=== PATIENT | male | born 1955 | race Caucasian/White ===

== ENCOUNTER → 2020-06-06 09:15 | Outpatient (CLI) | payer MEDICARE, SELFPAY | PROVIDERS: PCP Family Medicine; Referring Provider Family Medicine; Visit Provider Family Medicine | DX: Z03.818 Encounter for observation for suspected exposure to other biological agents ruled out (principal) | CPT/HCPCS: 87635; C9803; U0003 ==

== ENCOUNTER 2022-05-26 09:48 | Emergency (ER) | payer MEDICARE, SELFPAY ==
[2022-05-26 09:48] VITALS: BP 131/70; PULSE 87; RESP 18; TEMP 36.1; O2SAT 95; BMI 42.7
--- NOTE | 2022-05-26 09:59 | EX.ED.DYSGE1 ---
HPI History of Present Illness Chief Complaint: Flank Pain Narrative Narrative: Patient started having right-sided flank pain radiating to his right groin last night and got worse today. Although at this time it has somewhat improved after taking some Motrin this morning. No fevers or chills, he had some radiation to his testicle but that is gone. He has no urinary symptoms. He has no nausea or vomiting he has no diarrhea or constipation. He does have a history of kidney stones but he also has an appendix. [facility] Medical History (Updated 05/26/22 @ 11:[address] Gonzales Cornell MD) Diabetes Encounter for screening for COVID-19 Hypertension Lab test negative for COVID-19 virus Home Medications NK 04/25/21 [History Last Taken Unknown] Allergy/AdvReac Type Severity Reaction Status Date / Time docusate [From Colace] Allergy Unknown unknown Verified 05/26/22 09:50 Surgical History (Updated 05/26/22 @ 10:24 by Missy Beckham) History of right hip replacement Social History Smoking Status: Former smoker ROS ROS ED ROS Narrative Past medical history: Reviewed Medications: Reviewed Social history: Noncontributory Review of systems: All systems negative except as indicated General: No fever Eyes: No visual changes ENT: No upper airway congestion, normal voice Neck: No neck pain Cardiovascular: No chest pain Respiratory: No shortness of breath or cough Gastrointestinal: Abdominal pain as in HPI Genitourinary: No dysuria. No hematuria Musculoskeletal: Denies myalgias no difficulty with ambulation Skin: No rash Neurological: No memory loss, confusion or any focal weakness Psych: No recent behavioral changes Hematologic: No easy bleeding or easy bruising EXAM Physical Exam Narrative Exam Narrative: Physical exam General: Well nourished, Well developed, No Acute Distress Head: Normocephalic, Atraumatic Eyes: Conjunctiva not pale ENT: Moist mucous membranes Neck: Supple, Nontender, No lymphadenopathy Cardiovascular: Regular rate, Regular rhythm Respiratory: No distress, CTA bilaterally Abdomen: Soft, right lower quadrant abdominal pain. No guarding or rebound. Pain does extend into the right CVA region Back: Nontender, Normal Inspection. Extremities: Nontender, No edema Skin: Normal color, No rash Neurological: Alert, Normal Strength, Normal Sensation Psychological: Normal affect Const Vital Signs: 05/26/22 09:48 Temperature 96.9 F L Temperature Source Temporal Pulse Rate 87 Respiratory Rate 18 Blood Pressure 131/70 H Blood Pressure Mean 90 Pulse Ox 95 Oxygen Delivery Method Room Air MDM MDM MDM Narrative Medical decision making narrative: Patient's work-up is unremarkable there is a 7 mm stone and the bladder which likely indicates a recently passed stone which is consistent with his clinical history. He is reassured I will discharge him in stable condition. Lab Data Labs: Laboratory Results - last 24 hr 05/26/22 05/26/22 05/26/22 10:05 10:20 10:20 WBC 10.7 RBC 4.52 L Hgb 14.1 Hct 41.6 MCV 92.0 MCH 31.2 MCHC 33.9 RDW Std Deviation 43.5 RDW Coeff of Rhonda 13.1 Plt Count 229 MPV 9.0 Immature Gran % (Auto) 0.400 Neut % (Auto) 85.4 H Lymph % (Auto) 7.2 L [place] % (Auto) 6.2 Eos % (Auto) 0.4 Baso % (Auto) 0.4 Absolute Neuts (auto) 9.1 H Absolute Lymphs (auto) 0.77 L Nucleated RBC % 0 Sodium 137 Potassium 4.2 Chloride 102 Carbon Dioxide 26.0 Anion Gap 9 BUN 34 H Creatinine 1.22 Estim Creat Clear Calc 63.61 Est GFR (MDRD) Af Amer 76 Est GFR (MDRD) Non-Af 63 BUN/Creatinine Ratio 27.9 H Glucose 188 H Calcium 10.3 H Total Bilirubin 0.90 AST 18 ALT 35 Alkaline Phosphatase 39 L Total Protein 7.0 Albumin 3.4 Globulin 3.6 Albumin/Globulin Ratio 0.9 Urine Color Yellow Urine Clarity Clear Urine pH 6.0 Ur Specific [place] 1.015 Urine Protein 15 H Urine Glucose (UA) Normal Urine Ketones Negative Urine Occult Blood Negative Urine Nitrite Negative Urine Bilirubin Negative Urine Urobilinogen Normal Ur Leukocyte Esterase 25 H Urine RBC 0 SEEN Urine WBC 0-5 SEEN Ur Squamous Epith Cells 0 SEEN Urine Bacteria 0 SEEN Urine Mucus 0 SEEN Radiography Diagnostic Testing: Clinical Impression(s) from Imaging Studies Abdomen/Pelvis CT 05/26/22 10:40 IMPRESSION: Fatty infiltration of the liver. Nonobstructive bilateral intrarenal calculi. 7 mm calculus seen at the base of the urinary bladder most likely representing a recently passed calculus. Prostatic enlargement with indentation of the bladder base. Electronically Signed: Maninder Lucero MD at 11:13 EDT , Discharge Plan Triage Chief Complaint: Flank Pain ED Provider: Gonzales Cornell Dx/Rx/DC Orders Clinical Impression: Kidney calculi, Acute flank pain Instructions: Kidney Stones Expectant Tx Prescriptions: No Action NK Primary Care Provider: Michael Randall Referrals: Michael Randall MD [Primary Care Provider] - 2 Days Disposition Disposition: Home, Self Care
[2022-05-26 10:15] LABS: Bacteria 0 SEEN /hpf (None Seen); Mucous, Urine 0 SEEN /hpf (<or=2+); Red Blood Cells-Urine 0 SEEN /hpf (0-5); Squamous Epithelial Cells - UA 0 SEEN /hpf (0-5)
[2022-05-26 10:21] LABS: Color, Urine Yellow (Yellow); Glucose, Dipstick Normal (Normal); Ketone-Dipstick Negative (Negative); Leukocyte Esterase-Dipstick 25 /ul (Negative); Nitrite-Dipstick Negative (Negative); Occult Blood-Urine Negative /ul (Negative); Protein-Dipstick 15 mg/dl (Negative); Specific Gravity, Urine 1.015 (1.002-1.030); Urine Bilirubin Dipstick Negative (Negative); Urine Clarity Clear (Clear); Urine Urobilinogen Normal (Normal)
[2022-05-26 10:26] LABS: White Blood Cells 0-5 SEEN /hpf (0-5)
[2022-05-26 10:26] LABS: Absolute Lymphocyte Count 0.77 X10^3/uL (0.83-4.51); Absolute Neutrophil Count 9.1 X10^3/uL (2.0-7.7); Basophil# 0.04 X10^3/uL; Basophil% 0.4 % (0-1); Eosinophil# 0.04 X10^3/uL; Eosinophils% 0.4 % (0-5); Hematocrit 41.6 % (40-54); Hemoglobin 14.1 g/dL (13.0-16.5); Lymphocyte # 0.77 X10^3/ul (0.83-4.51); Lymphocyte % 7.2 % (19-41); Mean Corp Hgb Conc 33.9 g/dL (32-36); Mean Corpuscular Hgb 31.2 pg (27.0-32.0); Monocyte# 0.66 X10^3/uL; Monocyte% 6.2 % (0-10); NRBC Flagged by Analyzer 0 % (0-5); Neutrophil # 9.14 X10^3/uL (2.7-7.7); Neutrophil % 85.4 % (47-70); Platelet Count 229 K/mm3 (150-450); RBC Distribution Width CV 13.1 % (11.6-14.6); RBC Distribution Width SD 43.5 fl (35.1-43.9); Red Blood Count 4.52 M/mm3 (4.6-6.2); White Blood Count 10.7 K/mm3 (4.4-11.0)
--- NOTE | 2022-05-26 10:40 | CT_ITS ---
STUDY: CT ABDOMEN AND PELVIS WITHOUT CONTRAST REASON FOR EXAM: Male, 67 years old. Flank pain RADIATION DOSAGE (If Supplied By Facility): CTDIvol = ( 23.79 ) mGy, DLP = ( 1313.65 ) mGycm TECHNIQUE: Transaxial images were obtained from the dome of the diaphragm to the symphysis pubis without oral contrast, and without intravenous contrast. Sagittal and coronal images were reconstructed. Individualized dose optimization techniques were used for this CT. COMPARISON: None. FINDINGS: Minimal degree of increased linear markings at the lung bases suggestive of linear atelectasis and/or scarring. Coronary artery calcification. There is decreased attenuation of the liver consistent with steatosis. Normal gallbladder and extrahepatic biliary system. Normal spleen. Normal pancreas. Normal bilateral adrenal glands. There is a 5.9 mm calculus in the posterior inferior pole calyx of the right kidney. 5 mm nonobstructive calculus in the lower pole calyx of the left kidney. There is a 1.1 cm cyst in the lateral aspect of the left kidney with rim-like calcification. Tiny calcifications are also seen along the lateral margin of the left kidney. There is a small hiatal hernia. Normal small intestine. Normal colon. The appendix is visualized and appears normal. There is scattered atherosclerotic calcification of the abdominal aorta and its major visceral branches, without a demonstrated aneurysm. Normal inferior vena cava. Normal retroperitoneum. Contracted urinary bladder. There is a 7.1 mm calculus at the base of the bladder most likely representing a recently passed ureteral calculus. The prostate is enlarged. It measures 7 cm x 6.8 cm. This causes indentation at the bladder base. There is evidence of prior lower anterior abdominal wall hernia repair with a mesh. There are diffuse degenerative changes of the visualized lumbar spine. Prior right hip replacement. CT/Abdomen/Pelvis without Cont IMPRESSION: Fatty infiltration of the liver. Nonobstructive bilateral intrarenal calculi. 7 mm calculus seen at the base of the urinary bladder most likely representing a recently passed calculus. Prostatic enlargement with indentation of the bladder base. Electronically Signed: Maninder Lucero MD at 11:13 EDT ,
[2022-05-26 10:48] LABS: ALB/GLOB Ratio 0.9 RATIO (0.9-2.4); AST(SGOT) 18 U/L (15-37); Alanine Aminotransfer ALT/SGPT 35 U/L (16-61); Albumin, Serum 3.4 g/dL (3.2-5.0); Alkaline Phosphatase 39 U/L (45-117); Anion Gap 9 (5-15); BUN 34 mg/dL (7-18); BUN/Creat Ratio 27.9 RATIO (10-20); Calcium,Total 10.3 mg/dL (8.5-10.1); Chloride 102 mmol/L (98-107); Creatinine, Serum 1.22 mg/dL (0.70-1.30); EST Glomerular Filtration Rate 63 mL/min (>60); Est Glom Filt Rate - Afr Amer 76 mL/min (>60); Estimated Creatinine Clearance 63.61 ml/min; Globulin 3.6 g/dL (2.2-4.2); Glucose 188 mg/dL (74-106); Potassium 4.2 mmol/L (3.5-5.1); Sodium Level 137 mmol/L (136-145)
[2022-05-26 11:46] VITALS: BP 113/58; PULSE 71; RESP 18; O2SAT 97
== END 2022-05-26 11:47 | disposition home or self-care (01) ==
PROVIDERS: Emergency Provider Emergency Medicine; PCP Family Medicine; Visit Provider Emergency Medicine
DX: N20.0 Calculus of kidney (principal); E11.9 Type 2 diabetes mellitus without complications; I10 Essential (primary) hypertension; Z87.891 Personal history of nicotine dependence
CPT/HCPCS: 74176; 80053; 81001; 85025; 99283

== ENCOUNTER 2022-05-30 09:45 | Emergency (ER) | payer MEDICARE, SELFPAY ==
[2022-05-30 09:46] VITALS: BP 163/79; PULSE 75; RESP 18; TEMP 37.3; O2SAT 96; BMI 39.4
--- NOTE | 2022-05-30 09:58 | CT_ITS ---
STUDY: CT ABDOMEN AND PELVIS WITHOUT CONTRAST REASON FOR EXAM: Male, 67 years old. RLQ Pain. Known calculus in the urinary bladder. RADIATION DOSAGE (If Supplied By Facility): CTDIvol = ( 30.967 ) mGy, DLP = ( 1679.10 ) mGycm TECHNIQUE: Transaxial images were obtained from the dome of the diaphragm to the symphysis pubis without oral contrast, and without intravenous contrast. Sagittal and coronal images were reconstructed. Individualized dose optimization techniques were used for this CT. COMPARISON: Comparison is made with prior study dated 05/26/2020. FINDINGS: Stable mild linear scarring at the lung bases. Coronary artery calcification. There is decreased attenuation of the liver consistent with steatosis. Normal gallbladder and extrahepatic biliary system. Normal spleen. Normal pancreas. Normal bilateral adrenal glands. Stable bilateral nonobstructive intrarenal calculi. Stable calcific nodules along the peripheral aspect of the left kidney. Normal visualized stomach. Normal small intestine. Normal colon. The appendix is visualized and appears normal. Normal abdominal aorta. Normal inferior vena cava. Normal retroperitoneum. Normal urinary bladder. Prostatic enlargement with indentation at the bladder base. 7.1 mm calculus at the base of the bladder. Prior lower anterior abdominal wall hernia repair with mesh. There are diffuse degenerative changes of the visualized lumbar spine. CT/Abdomen/Pelvis without Cont IMPRESSION: Stable examination Electronically Signed: Maninder Lucero MD at 11:06 EDT ,
--- NOTE | 2022-05-30 09:59 | EDS_ITS ---
HPI History of Present Illness Chief Complaint: Flank Pain Informant: patient Narrative Narrative: 67-year-old male presenting to the emergency department with right lower quadrant pain. Patient states this pain began last week. He was seen in the emergency department on Thursday was found to have a 7 mm calculus in his bladder. It was felt that the pain could be residual from having just passed it. He states the pain has continued. He notes no urinary symptoms. He notes no changes in bowel habits fevers or vomiting. He denies any rashes. He denies anything strenuous that would have injured his abdomen. He has had prior umbilical hernia surgery repair. Otherwise no abdominal surgeries. He notes the pain is worse with walking sneezing and movements. [facility] Medical History (Updated 05/30/22 @ 11:[address] Phi Andrews DO) Diabetes Encounter for screening for COVID-19 Hypertension Lab test negative for COVID-19 virus Home Medications Nebilet 5 mg PO/SL DAILY 05/30/22 [History Last Taken Unknown] aspirin 81 mg tablet,delayed release 81 mg PO DAILY 05/30/22 [History Last Taken Unknown] cover card plus PO/SL DAILY 05/30/22 [History Last Taken Unknown] metformin 1,000 mg tablet 1,000 mg PO TID 05/30/22 [History Last Taken Unknown] oxycodone-acetaminophen 5 mg-325 mg tablet 1 tab PO Q6H PRN PRN pain 5 days #20 TABLETS 05/30/22 [Rx Last Taken Unknown] Allergy/AdvReac Type Severity Reaction Status Date / Time docusate [From Colace] Allergy Unknown unknown Verified 05/30/22 09:48 Surgical History (Updated 05/30/22 @ 10:[address] Phi Andrews DO) H/O umbilical hernia repair History of right hip replacement Social History (Updated 05/30/22 @ 10:[address] Phi Andrews DO) Smoking Status: Former smoker substance use type: does not use ROS ROS ED Constitutional Constitutional ED: Denies chills or weight loss Eyes Eyes: Denies change in vision or diplopia ENT ENT ED: Denies ear pain, rhinorrhea or sore throat Cardiovascular Cardiovascular: Denies chest pain, orthopnea, palpitations or racing heartbeat Respiratory/Chest Respiratory/Chest: Denies cough, dyspnea or orthopnea Gastrointestinal Gastrointestinal: Reports abdominal pain; Denies constipation, diarrhea, melena, nausea or vomiting Genitourinary Genitourinary ED: Denies dysuria, hematuria or urinary frequency Musculoskeletal Musculoskeletal: Denies arthralgias or myalgias Integumentary Denies abscess or rash Neurologic Neurologic: Denies headache(s) or weakness Psychiatric Psychiatric: Denies anxiety, depression, suicidal ideation or suicidal thoughts Endocrine Endocrinology: Denies polydipsia, polyphagia or polyuria Allergic/Immunologic Allergic/Immunologic ED: Denies mouth swelling, tongue swelling or urticaria EXAM Physical Exam Const Vital Signs: 05/30/22 09:46 05/30/22 10:30 Temperature 99.1 F 99.1 F Temperature Source Temporal Temporal Pulse Rate 75 75 Respiratory Rate 18 18 Blood Pressure 163/79 H 163/79 H Blood Pressure Mean 107 107 Pulse Ox 96 96 Oxygen Delivery Method Room Air Room Air Positive well nourished, well developed and obese General Appearance ED: well developed Nutritional Appearance: obese HEENT Reports normocephalic, head/scalp atraumatic and moist mucous membranes Eyes PERRL and EOMs intact bilaterally Neck no lymphadenopathy, supple and no JVD Resp normal respiratory effort and clear to auscultation bilaterally Cardio regular rate, regular rhythm and no murmurs GI GI Narrative: Patient reports tenderness to palpation in the right lower quadrant even with light touch. I do not appreciate a rash. There are normoactive bowel sounds. Body habitus does preclude a full confident examination however. Palpation: soft, tender and guarding; Negative for rebound tenderness present Back/Spine no CVA tenderness and normal ROM Extremity normal to inspection General Extremety ED: Negative for edema General Extremity: Negative for edema Neuro oriented x3 and CN's II-XII intact bilaterally Sensorium / Orientation: alert Motor Exam: strength 5/5 throughout Psych mental status grossly normal Mood & Affect: Negative for depressed or tearful Skin no rashes or lesions noted and no wounds MDM MDM MDM Narrative Medical decision making narrative: CBC is white count is 7.7 with a hemoglobin 12.8. CMP shows a glucose of 189 normal liver enzymes. Urinalysis is normal. CT abdomen pelvis does not show anything acute to explain his symptoms. I do note that the ascending colon is right next to the abdominal wall which is the area that hurts but it the appendix appears normal and the colon while noncontrasted CT was performed appears normal. At this point are not seen anything emergent I can write for medicine pain medicine and I think would be reasonable to refer him to general surgery for their evaluation. Lab Data Attestation: I reviewed the patient's lab results. Labs: Laboratory Results - last 24 hr 05/30/22 05/30/22 05/30/22 10:20 10:20 10:30 WBC 7.7 RBC 4.15 L Hgb 12.8 L Hct 38.7 L MCV 93.3 MCH 30.8 MCHC 33.1 RDW Std Deviation 45.0 H RDW Coeff of Rhonda 13.2 Plt Count 259 MPV 9.5 Immature Gran % (Auto) 2.200 H Neut % (Auto) 75.6 H Lymph % (Auto) 8.5 L [place] % (Auto) 6.4 Eos % (Auto) 6.8 H Baso % (Auto) 0.5 Absolute Neuts (auto) 5.8 Absolute Lymphs (auto) 0.65 L Nucleated RBC % 0 Sodium 139 Potassium 3.6 Chloride 102 Carbon Dioxide 28.0 Anion Gap 9 BUN 25 H Creatinine 1.09 Estim Creat Clear Calc 77.52 Est GFR (MDRD) Af Amer 86 Est GFR (MDRD) Non-Af 71 BUN/Creatinine Ratio 22.9 H Glucose 189 H Calcium 9.7 Total Bilirubin 0.60 Direct Bilirubin 0.21 AST 15 ALT 30 Alkaline Phosphatase 46 Total Protein 7.3 Albumin 2.8 L Globulin 4.5 H Albumin/Globulin Ratio 0.6 L Urine Color Yellow Urine Clarity Clear Urine pH 6.0 Ur Specific [place] 1.010 Urine Protein Negative Urine Glucose (UA) Normal Urine Ketones Negative Urine Occult Blood 10 H Urine Nitrite Negative Urine Bilirubin Negative Urine Urobilinogen 1 H Ur Leukocyte Esterase Negative Urine RBC 0-5 SEEN Urine WBC 0 SEEN Ur Squamous Epith Cells 0 SEEN Urine Bacteria 0 SEEN Urine Mucus 0 SEEN Radiography Diagnostic Testing: Clinical Impression(s) from Imaging Studies Abdomen/Pelvis CT 05/30/22 09:58 IMPRESSION: Stable examination Electronically Signed: Maninder Lucero MD at 11:06 EDT , Discharge Plan Triage Chief Complaint: Flank Pain ED Provider: Phi Andrews Dx/Rx/DC Orders Clinical Impression: Abdominal pain, acute, Bilateral nephrolithiasis, Diabetes Instructions: Abdominal Pain Prescriptions: New oxycodone-acetaminophen [oxycodone-acetaminophen] 5-325 mg tablet 1 tab PO Q6H PRN PRN (Reason: pain) 5 Days Qty: 20 0RF No Action aspirin [Aspir-81] 81 mg Tablet,Delayed Release (Dr/Ec) 81 mg PO DAILY metformin 1,000 mg Tablet 1,000 mg PO TID Nebilet 5 mg PO/SL DAILY cover card plus PO/SL DAILY Primary Care Provider: Michael Randall Referrals: Kike Lisa MD [Med Staff - Active Staff] - As soon as possible Michael Randall MD [Primary Care Provider] - As Needed Disposition Disposition: Home, Self Care
[2022-05-30] MEDS: Ketorolac 30 MG/ML Syringe IV (10:18)
[2022-05-30 10:30] VITALS: BP 163/79; PULSE 75; RESP 18; TEMP 37.3; O2SAT 96
[2022-05-30 10:34] LABS: Absolute Lymphocyte Count 0.65 X10^3/uL (0.83-4.51); Absolute Neutrophil Count 5.8 X10^3/uL (2.0-7.7); Basophil# 0.04 X10^3/uL; Basophil% 0.5 % (0-1); Eosinophil# 0.52 X10^3/uL; Eosinophils% 6.8 % (0-5); Hematocrit 38.7 % (40-54); Hemoglobin 12.8 g/dL (13.0-16.5); Lymphocyte # 0.65 X10^3/ul (0.83-4.51); Lymphocyte % 8.5 % (19-41); Mean Corp Hgb Conc 33.1 g/dL (32-36); Mean Corpuscular Hgb 30.8 pg (27.0-32.0); Mean Corpuscular Volume 93.3 fL (80-94); Mean Platelet Vol. 9.5 fl (6.2-12.0); Monocyte# 0.49 X10^3/uL; Monocyte% 6.4 % (0-10); NRBC Flagged by Analyzer 0 % (0-5); Neutrophil # 5.79 X10^3/uL (2.7-7.7); Neutrophil % 75.6 % (47-70); Platelet Count 259 K/mm3 (150-450); RBC Distribution Width CV 13.2 % (11.6-14.6); Red Blood Count 4.15 M/mm3 (4.6-6.2); White Blood Count 7.7 K/mm3 (4.4-11.0)
[2022-05-30 10:41] LABS: Bacteria 0 SEEN /hpf (None Seen); Mucous, Urine 0 SEEN /hpf (<or=2+); Squamous Epithelial Cells - UA 0 SEEN /hpf (0-5); White Blood Cells 0 SEEN /hpf (0-5)
[2022-05-30 10:43] LABS: Color, Urine Yellow (Yellow); Glucose, Dipstick Normal (Normal); Ketone-Dipstick Negative (Negative); Leukocyte Esterase-Dipstick Negative /ul (Negative); Nitrite-Dipstick Negative (Negative); Occult Blood-Urine 10 /ul (Negative); Protein-Dipstick Negative (Negative); Urine Bilirubin Dipstick Negative (Negative); Urine Clarity Clear (Clear); Urine Urobilinogen 1 mg/dl (Normal)
[2022-05-30 10:49] LABS: Red Blood Cells-Urine 0-5 SEEN /hpf (0-5)
[2022-05-30 10:53] LABS: ALB/GLOB Ratio 0.6 RATIO (0.9-2.4); AST(SGOT) 15 U/L (15-37); Alanine Aminotransfer ALT/SGPT 30 U/L (16-61); Albumin, Serum 2.8 g/dL (3.2-5.0); Alkaline Phosphatase 46 U/L (45-117); Anion Gap 9 (5-15); BUN 25 mg/dL (7-18); BUN/Creat Ratio 22.9 RATIO (10-20); Bilirubin, Direct 0.21 mg/dL (0.00-0.30); Calcium,Total 9.7 mg/dL (8.5-10.1); Chloride 102 mmol/L (98-107); Creatinine, Serum 1.09 mg/dL (0.70-1.30); EST Glomerular Filtration Rate 71 mL/min (>60); Est Glom Filt Rate - Afr Amer 86 mL/min (>60); Estimated Creatinine Clearance 77.52 ml/min; Globulin 4.5 g/dL (2.2-4.2); Glucose 189 mg/dL (74-106); Potassium 3.6 mmol/L (3.5-5.1); Protein, Total 7.3 g/dL (6.4-8.2); Sodium Level 139 mmol/L (136-145)
[2022-05-30 11:25] VITALS: BP 141/76; RESP 18
== END 2022-05-30 11:30 | disposition home or self-care (01) ==
PROVIDERS: Emergency Provider Emergency Medicine; PCP Family Medicine; Visit Provider Emergency Medicine
DX: N20.0 Calculus of kidney (principal); E11.9 Type 2 diabetes mellitus without complications; I10 Essential (primary) hypertension; E66.9 Obesity, unspecified; Z87.891 Personal history of nicotine dependence; Z79.82 Long term (current) use of aspirin; Z79.84 Long term (current) use of oral hypoglycemic drugs
CPT/HCPCS: 74176; 80053; 81001; 82248; 85025; 96374; 99284; A4216

== ENCOUNTER → 2022-06-09 | Outpatient (CLI) | payer MEDICARE, SELFPAY ==
--- NOTE | 2022-06-09 09:29 | US_ITS ---
STUDY: ABDOMINAL ULTRASOUND - RIGHT UPPER QUADRANT REASON FOR VISIT: Male, 67 years old RUQ Abdominal Pain TECHNIQUE: Ultrasound evaluation of the right upper quadrant was performed with real-time and static greene-scale imaging. TECHNICAL QUALITY: Adequate. COMPARISON: None. FINDINGS: Liver: The liver measures 21.7 cm. There is increased echogenicity consistent with fatty infiltration. The bile ducts are within normal limits. There is hepatic color flow. The direction of portal flow is hepatopetal. There is no demonstrated mass lesion. Gallbladder: Normal distended gallbladder. The gallbladder wall measures 2 mm. There is a negative sonographic Chatterjee''s sign. There is no pericholecystic fluid. There are no gallstones. Common Bile Duct (C.B.D.): The common bile duct measures 4 mm. Pancreas: Normal size of the head, body and tail of the pancreas. There is normal echogenicity of the pancreas. There is no demonstrated pancreatic mass or cyst. Right Kidney: Normal size of the right kidney. The right kidney measures 13.8 cm. Normal renal cortex. The right cortex measures 1.7 cm. There is no demonstrated renal mass or cyst. There is no right hydronephrosis. US/Gallbladder IMPRESSION: Fatty infiltration of the liver. Electronically Signed: Ryan Banks MD at 17:01 EDT ,
== END | disposition home or self-care (01) ==
LOC: US 09:11
PROVIDERS: PCP Family Medicine; Referring Provider Surgery; Visit Provider Surgery
DX: K76.0 Fatty (change of) liver, not elsewhere classified (principal); R10.11 Right upper quadrant pain
CPT/HCPCS: 76705